=== PATIENT | male | born 1970 | race Caucasian/White ===

== ENCOUNTER → 2018-01-08 | Outpatient (CLI) | payer BC, OTHER | LOC: ULTRA 15:17 | DX: M25.462 Effusion, left knee (principal); M79.89 Other specified soft tissue disorders ==

== ENCOUNTER → 2019-11-07 | Outpatient (CLI) | payer OTHER ==
[~2019-11-07] MED LIST: AMARYL2 MG PO; ASA81BEC PO; CARVEDILOL12.5 MG PO; COZAAR 25 MG TA25 M2 PO; NEPHRO-VITE RX1 TA1 PO; TRADJENTA5 MG PO
== END ==
LOC: LAB 10:30
PROVIDERS: ATTEND Specialist
DX: Z01.812 Encounter for preprocedural laboratory examination (principal); Z20.828 Contact with and (suspected) exposure to other viral communicable diseases

== ENCOUNTER → 2019-11-12 | Outpatient (CLI) | payer OTHER ==
[~2019-11-12] VITALS: Ht 167.6 cm; Wt 72.6 kg
--- NOTE | ~2019-11-12 | P ---
[facility] [place] [address] PROCEDURE REPORT Name: RICHIE LINDA Room #: REG MARISA Genao.#: [id number] Admission: 11/12/19 Attend Phys: Geraldo Lei Discharge: Date of : 70 Report #: [id number] THIS REPORT FOR: cc: Brijesh Becerril,Geraldo Krishnan MD ~ CC: Geraldo Becerril DO DATE OF SERVICE: 11/12/2019 PROCEDURE PERFORMED: Colonoscopy. HISTORY OF PRESENT ILLNESS: The patient is a 49-year-old male who presents today for routine screening colonoscopy. Denies any symptoms. No family history of colon cancer. DESCRIPTION OF PROCEDURE: The risks and benefits of the procedure were explained to the patient, those risks including but not limited to bleeding, perforation and the risk of sedation. He understood these risks and gave informed consent. Sedation was given using propofol per anesthesia. Next, digital rectal exam was initially performed, which was normal. Next, using a standard Olympus colonoscope, the scope was placed in the patient's anus and advanced under direct vision to the cecum. The overall prep was excellent. The cecum and ileocecal valve were normal in appearance. The ascending, transverse, descending and sigmoid colon were all normal. The rectal mucosa was normal. On retroflexion, no abnormalities were noted. The scope was then withdrawn and the procedure terminated. The patient tolerated the procedure well. IMPRESSION: Normal colonoscopy. RECOMMENDATIONS: Repeat colonoscopy in 10 years. Thank you for allowing me to participate in his care. By: [id number] Geraldo Mederos MD /nt
[2019-11-12 08:13] LABS: CALCIUM 8.2 mg/dL (8.5-10.1); CREATININE 7.7 mg/dL (0.7-1.3); POTASSIUM 4.1 mmol/L (3.5-5.1)
[2019-11-12 08:18] LABS: ALBUMIN 3.9 g/dL (3.4-5.0); TOTAL BILIRUBIN 0.5 mg/dL (0.2-1.0); TOTAL PROTEIN 8.1 g/dL (6.4-8.2)
== END | disposition home or self-care (01) ==
LOC: GI 07:29
PROVIDERS: ATTEND Specialist
DX: Z12.11 Encounter for screening for malignant neoplasm of colon (principal); I10 Essential (primary) hypertension; Z79.899 Other long term (current) drug therapy; Z98.890 Other specified postprocedural states
CPT/HCPCS: 62110; 62900

== ENCOUNTER 2020-02-17 01:21 | Emergency (ER) | payer OTHER ==
[~2020-02-17] VITALS: Ht 165.1 cm; Wt 72.6 kg
[2020-02-17] MEDS ORDERED: JANUVIA 50 MG T50 M1 PO (01:32)
[2020-02-17 03:16] VITALS: BP 172/67
== END 2020-02-17 03:22 | disposition home or self-care (01) ==
LOC: ER 01:21
DX: S01.01XA Laceration without foreign body of scalp, initial encounter (principal); I10 Essential (primary) hypertension; Z99.2 Dependence on renal dialysis; Z90.49 Acquired absence of other specified parts of digestive tract; Z94.0 Kidney transplant status; Z79.82 Long term (current) use of aspirin; Z79.899 Other long term (current) drug therapy; Z88.8 Allergy status to other drugs, medicaments and biological substances; Y04.0XXA Assault by unarmed brawl or fight, initial encounter; Y93.89 Activity, other specified; Y92.89 Other specified places as the place of occurrence of the external cause; Y99.9 Unspecified external cause status

== ENCOUNTER 2020-03-05 12:17 | Emergency (ER) | payer OTHER ==
[~2020-03-05] VITALS: Ht 167.6 cm; Wt 70.3 kg
[~2020-03-05 12:17] MED LIST changes: +JANUVIA 50 MG T50 M1 PO
[2020-03-05 12:18] VITALS: BP 126/67
== END 2020-03-05 12:48 | disposition home or self-care (01) ==
LOC: ER 12:17
DX: S01.01XD Laceration without foreign body of scalp, subsequent encounter (principal); I10 Essential (primary) hypertension; Z79.82 Long term (current) use of aspirin; Z79.899 Other long term (current) drug therapy; Z88.8 Allergy status to other drugs, medicaments and biological substances; X58.XXXD Exposure to other specified factors, subsequent encounter